=== PATIENT | male | born 1990 | race Caucasian/White ===

== ENCOUNTER 2016-11-16 09:57 | Emergency (ER) | payer BC ==
[~2016-11-16] VITALS: Ht 190.5 cm; Wt 75.0 kg
[2016-11-16 12:11] VITALS: BP 123/79
[2016-11-16 12:25] LABS: APPEARANCE,URINE CLEAR (CLEAR); GLUCOSE, URINE (UA) NEGATIVE (NEGATIVE); KETONES,URINE NEGATIVE (NEGATIVE); LEUKOCYTE ESTERASE ,URINE NEGATIVE (NEGATIVE); OCCULT BLOOD,URINE MODERATE (NEGATIVE); PROTEIN,URINE NEGATIVE (NEGATIVE)
[2016-11-16 12:26] LABS: ADD UA MICROSCOPIC YES
[2016-11-16 12:29] LABS: SQUAMOUS EPITHELIAL CELL,UR None Seen /LPF (None Seen); WBC,URINE None Seen /HPF (0-5)
== END 2016-11-16 12:56 | disposition home or self-care (01) ==
LOC: EMS 09:59
DX: R31.9 Hematuria, unspecified (principal)
CPT/HCPCS: 99283